=== PATIENT | female | born 1990 | race Caucasian/White ===

== ENCOUNTER 2017-04-30 17:21 | Emergency (ER) | payer OTHER ==
[~2017-04-30] VITALS: Ht 152.4 cm; Wt 79.0 kg
[2017-04-30 17:23] VITALS: BP 119/76; PULSE 125; RESP 14; TEMP 97.6; O2SAT 99
--- NOTE | 2017-04-30 17:54 | PD ---
HPI Chief Complaint: Cold / Flu Symptoms Time Seen by Provider: 17:47 Travel History International Travel<30 days: No Contact w/Intl Traveler<30days: No Traveled to known affect area: No History of Present Illness HPI 26-year-old female patient with flulike symptoms, nausea and vomiting, and fever , and chills over the past 3 days. Patient has had no diarrhea. Patient has had chills but no specific complaints of fever. Office been somewhat productive , and patient feel somewhat wheezy. Patient would go to the OB floor, but she needs to be cleared for flu prior to going up. Patient had no fever in triage. Patient states normal movement. No abdominal pain. She has no known drug allergies. PFSH Past Medical History ?: LMP: 32 weeks Social History Alcohol Use: No Tobacco Use: No Substance Use: No Allergies-Medications (Allergen,Severity, Reaction): Coded Allergies: No Known Allergies (Unverified , 04/30/17) Reported Meds & Prescriptions Reported Meds & Active Scripts Active No Active Prescriptions or Reported Medications Review of Systems Except as stated in HPI: all other systems reviewed are Neg General / Constitutional: Positive: Chills, No: Fever Eyes: No: Visual changes HENT: Positive: Lightheadedness, Sore Throat, Rhinitis, Rhinorrhea, Congestion , No: Headaches, Vertigo, Nosebleed, Neck Stiffness, Neck Pain, Dental Difficulties, Earache Cardiovascular: No: Chest Pain or Discomfort Respiratory: Positive: Cough, Shortness of Breath, Wheezing (with cough.) Gastrointestinal: Positive: Nausea, Vomiting, No: Diarrhea, Abdominal Pain Genitourinary: Positive: Other (patient 35 weeks .), No: Dysuria Musculoskeletal: No: Pain Skin: No Rash Neurologic: No: Weakness Psychiatric: No: Depression Endocrine: No: Polydipsia Hematologic/Lymphatic: No: Easy Bruising Physical Exam Narrative GENERAL: Patient appears ill but not septic. SKIN: Warm and dry. Normal color. Normal turgor. No rash. No diaphoresis HEAD: Atraumatic. Normocephalic. EYES: Pupils equal and round. No scleral icterus. No injection or drainage. ENT: No nasal bleeding. Mucous membranes pink and moist. TMs are clear bilaterally. No sinus tenderness. Moderate clear to white nasal drainage is noted. Posterior pharynx is generally unremarkable without significant injection or swelling. NECK: Trachea midline. Supple nontender. CARDIOVASCULAR: Regular rate and rhythm. RESPIRATORY: No accessory muscle use. Mild diffuse wheezes to auscultation. Wheezes worse with cough. Breath sounds equal bilaterally. GASTROINTESTINAL: Abdomen soft, non-tender, nondistended. Patient has gravid uterus with palpable movement. Hepatic and splenic margins not palpable. MUSCULOSKELETAL: Extremities without clubbing, cyanosis, or edema. No obvious deformities. NEUROLOGICAL: Awake and alert. No obvious cranial nerve deficits. Motor grossly within normal limits. Five out of 5 muscle strength in the arms and legs. Normal speech. PSYCHIATRIC: Appropriate mood and affect; insight and judgment normal. Data Data Last Documented VS Vital Signs Date Time Temp Pulse Resp B/P (MAP) Pulse Ox O2 Delivery O2 Flow Rate FiO2 04/30/17 17:52 120 20 99 Room Air 04/30/17 17:23 97.6 119/76 (90) Orders Orders Complete Blood Count With Diff (04/30/17 17:29) Comprehensive Metabolic Panel (04/30/17 17:29) Influenzae A/B Antigen (04/30/17 17:29) Iv Access Insert/Monitor (04/30/17 18:04) Ecg Monitoring (04/30/17 18:04) Oximetry (04/30/17 18:04) Ondansetron Inj (Zofran Inj) (04/30/17 18:15) Sodium Chlor 0.9% 1000 Ml Inj (Ns 1000 M (04/30/17 18:04) Sodium Chloride 0.9% Flush (Ns Flush) (04/30/17 18:15) Acetaminophen (Tylenol) (04/30/17 18:15) Labs Laboratory Tests Test 04/30/17 17:30 White Blood Count 13.1 TH/MM3 Red Blood Count 3.84 MIL/MM3 Hemoglobin 12.2 GM/DL Hematocrit 35.1 % Mean Corpuscular Volume 91.2 FL Mean Corpuscular Hemoglobin 31.8 PG Mean Corpuscular Hemoglobin Concent 34.9 % Red Cell Distribution Width 13.2 % Platelet Count 174 TH/MM3 Mean Platelet Volume 10.1 FL Neutrophils (%) (Auto) 80.9 % Lymphocytes (%) (Auto) 7.9 % Monocytes (%) (Auto) 10.6 % Eosinophils (%) (Auto) 0.3 % Basophils (%) (Auto) 0.3 % Neutrophils # (Auto) 10.6 TH/MM3 Lymphocytes # (Auto) 1.0 TH/MM3 Monocytes # (Auto) 1.4 TH/MM3 Eosinophils # (Auto) 0.0 TH/MM3 Basophils # (Auto) 0.0 TH/MM3 CBC Comment DIFF FINAL Differential Comment Blood Urea Nitrogen 6 MG/DL Creatinine 0.59 MG/DL Random Glucose 84 MG/DL Total Protein 7.4 GM/DL Albumin 2.8 GM/DL Calcium Level 8.5 MG/DL Alkaline Phosphatase 178 U/L Aspartate Amino Transf (AST/SGOT) 19 U/L Alanine Aminotransferase (ALT/SGPT) 19 U/L Total Bilirubin 0.4 MG/DL Sodium Level 136 MEQ/L Potassium Level 3.7 MEQ/L Chloride Level 103 MEQ/L Carbon Dioxide Level 22.9 MEQ/L Anion Gap 10 MEQ/L Estimat Glomerular Filtration Rate 124 ML/MIN MDM Medical Decision Making Medical Screen Exam Complete: Yes Emergency Medical Condition: Yes Medical Record Reviewed: Yes Differential Diagnosis Acute nausea vomiting. Influenza. Dehydration. 35 weeks . Narrative Course Patient is medically stable at time of exam. Labs ordered and triage including CBC, CMP, and rapid influenza. IV access is obtained and the patient is given 1000 mL normal saline bolus as well as 4 mg Zofran IV. Patient is given 650 mg acetaminophen by mouth. CBC shows leukocytosis of 13.1. Chemistries are unremarkable. Rapid influenza is positive for influenza B. Call was placed to the OB hospitalist, and the patient was discussed. He recommended treating the patient with Tamiflu 75 mg twice a day 5 days as well as Zofran as needed for nausea and vomiting. She is to rest, push fluids, follow-up as needed. He did not feel the need to assess the patient here in the hospital as the patient had normal movement. Diagnosis Primary Impression: Influenza B Referrals: [employer] Patient Instructions: General Instructions, Influenza (DC) Additional Instructions: CBC shows leukocytosis of 13.1. Chemistries are unremarkable. Rapid influenza is positive for influenza B. Call was placed to the OB hospitalist, and the patient was discussed. He recommended treating the patient with Tamiflu 75 mg twice a day 5 days as well as Zofran as needed for nausea and vomiting. She is to rest, push fluids, follow-up as needed. He did not feel the need to assess the patient here in the hospital as the patient had normal movement. Med/Other Pt SpecificInfo: Prescription(s) given Scripts Ondansetron Odt (Zofran Odt) 4 Mg Tab 4 MG SL Q6HR Y for Nausea/Vomiting, #30 TAB 0 Refills Prov: Eugene Brown MD 04/30/17 Oseltamivir (Tamiflu) 75 Mg Cap 75 MG PO BID for Mgmt Viral Infection for 5 Days, #10 CAP 0 Refills Prov: Eugene Brown MD 04/30/17 Disposition: 01 DISCHARGE HOME Condition: Stable Laurent Garrison Apr 30, 2017 17:54
[2017-04-30] MEDS ORDERED: SODIUM CHLOR 0.9% 1000 ML INJ 1,000 ML IV SCH (18:04)
[2017-04-30 18:09] LABS: AUTOMATED NEUTROPHIL # 10.6 TH/MM3 (1.8-7.7); BASOPHIL % 0.3 % (0.0-2.0); EOSINOPHIL % 0.3 % (0.0-4.0); HEMATOCRIT 35.1 % (35.0-46.0); HEMOGLOBIN 12.2 GM/DL (11.6-15.3); LYMPH % 7.9 % (9.0-44.0); MEAN CELL VOLUME 91.2 FL (80.0-100.0); MEAN CORPUSCULAR HEMOGLOBIN 31.8 PG (27.0-34.0); MEAN CORPUSCULAR HGB CONC 34.9 % (32.0-36.0); MEAN PLATELET VOLUME 10.1 FL (7.0-11.0); MONO % 10.6 % (0.0-8.0); MONOCYTE # 1.4 TH/MM3 (0-0.9); NEUT % 80.9 % (16.0-70.0); PLATELET COUNT 174 TH/MM3 (150-450); RED BLOOD COUNT 3.84 MIL/MM3 (4.00-5.30); RED CELL DISTRIBUTION WIDTH 13.2 % (11.6-17.2); WHITE BLOOD COUNT 13.1 TH/MM3 (4.0-11.0)
[2017-04-30] MEDS ORDERED: SODIUM CHLORIDE 0.9% FLUSH 10 ML FLUSH IV FLUSH PRN (18:15)
[2017-04-30] MEDS ORDERED: ACETAMINOPHEN 325 MG TAB PO ONE (18:15)
[2017-04-30] MEDS ORDERED: ONDANSETRON HCL 4 MG/2 ML VIAL IVP ONE (18:15)
[2017-04-30 18:52] LABS: ALBUMIN 2.8 GM/DL (3.4-5.0); AST (GOT) 19 U/L (15-37); BICARBONATE 22.9 MEQ/L (21.0-32.0); BLOOD UREA NITROGEN 6 MG/DL (7-18); CALCIUM 8.5 MG/DL (8.5-10.1); CHLORIDE 103 MEQ/L (98-107); CREATININE 0.59 MG/DL (0.50-1.00); GLOMERULAR FILTRATION RATE 124 ML/MIN (>89); GLUCOSE,RANDOM 84 MG/DL (74-106); SODIUM (NA) 136 MEQ/L (136-145)
[2017-04-30 18:53] LABS: ALT (GPT) 19 U/L (10-53)
[2017-04-30 18:55] LABS: ALKALINE PHOSPHATASE 178 U/L (45-117); TOTAL BILIRUBIN ADULT 0.4 MG/DL (0.2-1.0); TOTAL PROTEIN 7.4 GM/DL (6.4-8.2)
[2017-04-30] MEDS ORDERED: ZOFR4TAB3 SL (19:13)
[2017-04-30] MEDS ORDERED: OSEL75 PO (19:13)
== END 2017-04-30 20:04 | disposition home or self-care (01) ==
LOC: NEPC 17:21
DX: J10.1 Influenza due to other identified influenza virus with other respiratory manifestations (principal); D72.829 Elevated white blood cell count, unspecified; R11.2 Nausea with vomiting, unspecified
CPT/HCPCS: 80053; 85025; 87804; 96374; 99284; J2405; J7030